=== PATIENT | female | born 1955 | race Caucasian/White ===

== ENCOUNTER 2018-06-20 21:27 | Emergency (ER) | payer MEDICAID, OTHER ==
[2018-06-20 23:12] LABS: ADD MAN DIFF? NO
[2018-06-20 23:15] LABS: BASOPHILS % 0.5 % (0.0-2.0); EOSINOPHILS % 0.9 % (0.0-7.0); HEMATOCRIT 31.6 % (37.0-47.0); HEMOGLOBIN 10.4 g/dl (12.0-16.0); LYMPHOCYTES # 0.6 10^3/ul (0.8-2.9); LYMPHOCYTES % 14.8 % (15.0-51.0); MEAN CORPUSCULAR HEMOGLOBIN 29.5 pg (29.0-33.0); MEAN CORPUSCULAR HGB CONC 32.9 g/dl (32.0-37.0); MEAN CORPUSCULAR VOLUME 89.8 fl (82.0-101.0); MEAN PLATELET VOLUME 9.6 fl (7.4-10.4); MONOCYTE # 0.3 10^3/ul (0.3-0.9); MONOCYTES % 6.9 % (0.0-11.0); NEUTROPHIL # 3.3 10^3/ul (1.6-7.5); NEUTROPHILS % 76.7 % (39.0-77.0); PLATELET COUNT 188 10^3/UL (140-415); RED BLOOD COUNT 3.52 10^6/ul (4.20-5.40); RED CELL DISTRIBUTION WIDTH 13.7 % (11.5-14.5)
[2018-06-20 23:15] LABS: WHITE BLOOD COUNT 4.3 10^3/ul (4.8-10.8)
[2018-06-20 23:31] LABS: ALANINE AMINOTRANSFERASE 36 IU/L (13-69); ANION GAP 8 (5-13); ASPARTATE AMINO TRANSFERASE 53 IU/L (15-46); BLOOD UREA NITROGEN 12 mg/dl (7-20); CALCIUM 8.7 mg/dl (8.4-10.2); CARBON DIOXIDE 33 mmol/L (21-31); CHLORIDE 95 mmol/L (97-110); CREATININE 0.52 mg/dl (0.44-1.00); Estimated GFR > 60 mL/min (>60); GLUCOSE 150 mg/dl (70-220); POTASSIUM 3.6 mmol/L (3.5-5.1); SODIUM 136 mmol/L (135-144)
[2018-06-20 23:31] LABS: LACTIC ACID 1.5 mmol/L (0.5-2.0)
[2018-06-20 23:34] LABS: INR 0.93; PROTIME 12.6 Sec (11.9-14.9)
[2018-06-21] MEDS: ONDANSETRON 4 MG INJ IV (00:25)
[2018-06-21 00:44] LABS: URINE PH (Dip) POC 7.5 (5.0-8.5)
[2018-06-21 00:44] LABS: URINE BLOOD (Dip) POC Negative (NEGATIVE); URINE GLUCOSE (Dip) POC Negative (NEGATIVE); URINE KETONES (Dip) POC Negative (NEGATIVE); URINE LEUKOCYTE EST (Dip) POC Negative (NEGATIVE); URINE NITRITE (Dip) POC Negative (NEGATIVE); URINE TOTAL PROTEIN POC 1+ (NEGATIVE)
== END 2018-06-21 01:39 | disposition home or self-care (01) ==
LOC: E/R 21:27
DX: D64.9 Anemia, unspecified (principal); R11.10 Vomiting, unspecified; R19.7 Diarrhea, unspecified; D72.819 Decreased white blood cell count, unspecified; R40.2142 Coma scale, eyes open, spontaneous, at arrival to emergency department; R40.2252 Coma scale, best verbal response, oriented, at arrival to emergency department; R40.2362 Coma scale, best motor response, obeys commands, at arrival to emergency department; R42 Dizziness and giddiness; Z85.850 Personal history of malignant neoplasm of thyroid
CPT/HCPCS: 36415; 71045; 80048; 81003; 83605; 83735; 84450; 84460; 85025; 85610; 85730; 93005; 96374; 99285-25